=== PATIENT | male | born 1960 ===

== ENCOUNTER 2023-11-10 09:06 | Outpatient (CLI) | payer BC, OTHER, SELFPAY | END 2023-11-10 09:07 | disposition home or self-care (01) | LOC: NFLDREF 11-11 11:15 | PROVIDERS: PCP Physician Assistant Medical; Referring Provider Physician Assistant Medical; Visit Provider Physician Assistant Medical | DX: Z00.00 Encounter for general adult medical examination without abnormal findings (principal); E78.2 Mixed hyperlipidemia; I10 Essential (primary) hypertension; Z12.5 Encounter for screening for malignant neoplasm of prostate; Z13.29 Encounter for screening for other suspected endocrine disorder; Z13.9 Encounter for screening, unspecified | CPT/HCPCS: 80053; 80061; 84443; G0103 ==

== ENCOUNTER 2024-12-14 08:30 | Outpatient (CLI) | payer BC, SELFPAY | END 2024-12-14 08:31 | disposition home or self-care (01) | LOC: NFLDREF 12-19 11:25 | PROVIDERS: PCP Physician Assistant Medical; Referring Provider Physician Assistant Medical; Visit Provider Physician Assistant Medical | DX: Z23 Encounter for immunization (principal); Z00.00 Encounter for general adult medical examination without abnormal findings; E78.2 Mixed hyperlipidemia; I10 Essential (primary) hypertension; K21.9 Gastro-esophageal reflux disease without esophagitis | CPT/HCPCS: 80053; 80061; 84443; G0103 ==